=== PATIENT | female | born 1990 | race Caucasian/White ===

== ENCOUNTER 2023-11-05 07:32 | Outpatient (CLI) | payer MEDICAID, SELFPAY | END 2023-11-05 07:33 | disposition home or self-care (01) | PROVIDERS: PCP Family Medicine; Visit Provider Family Medicine | DX: M51.36 Other intervertebral disc degeneration, lumbar region (principal); M54.16 Radiculopathy, lumbar region | CPT/HCPCS: 62323; J0702; Q9966 ==